=== PATIENT | male | born 1995 | race Caucasian/White ===

== ENCOUNTER 2024-02-21 18:16 | Observation (INO) ==
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
[2024-02-21 19:02] LABS: iSTAT Hemoglobin 12.9 g/dl (14.0-18.0); iSTAT Ionized Calcium 1.16 mmol/l (1.12-1.32); iSTAT Potassium 3.7 mmol/L (3.3-5.0)
[2024-02-21] MEDS: OPTIRAY 320 100ml IV ONE (19:13)
[2024-02-21 19:19] LABS: Basophils # (auto) 0.02 K/uL (0.00-0.20); Basophils % (auto) 0.2 %; Eosinophils # (auto) 0.03 K/uL (0.00-0.50); Eosinophils % (auto) 0.3 %; Hematocrit (blood only) 37.2 % (42.0-52.0); Hemoglobin 13.4 g/dl (14.0-18.0); Immature Granulocytes # (auto) 0.05 K/uL (0.01-0.20); Immature Granulocytes % (auto) 0.5 %; Lymphocytes # (auto) 0.94 K/uL (1.20-3.40); Lymphocytes % (auto) 8.8 %; Mean Corpuscular Hemoglobin 32.3 pg (25.0-34.0); Mean Corpuscular Volume 89.6 fL (80.0-100.0); Mean Platelet Volume 11.2 fL (9.4-12.4); Monocytes # (auto) 0.62 K/uL (0.11-0.59); Monocytes % (auto) 5.8 %; Neutrophils # (auto) 9.07 K/uL (1.40-6.50); Neutrophils % (auto) 84.4 %; Platelet Count 160 K/uL (130-400); RDW Coefficient of Variation 11.9 % (11.5-14.5); RDW Standard Deviation 38.4 fL (36.4-46.3); Red Blood Count 4.15 M/uL (4.70-6.10); White Blood Count 10.73 K/ul (4.8-10.8)
[2024-02-21] MEDS: AMPICILLIN/SULBACTAM SOD 3,000 MG/100 ML BAG IV STA (19:25)
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
[2024-02-21 19:38] LABS: Albumin Globulin Ratio 2.5 (0.9-2); Albumin Level 4.5 gm/dl (3.4-5.0); BUN Creatinine Ratio 8.6 (10-20); Bilirubin,Total 0.3 mg/dl (0.2-1.0); Creatinine Clr Calc Pharmacy 109.6 ml/min; Globulin 1.8 gm/dl (2.5-4.0); Potassium 3.7 mmol/L (3.5-5.1); Total Protein 6.3 gm/dl (6.0-8.3)
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
[2024-02-21] MEDS: ACETAMINOPHEN 1,000 MG/100 ML VIAL IV STA (19:46)
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
[2024-02-21] MEDS ORDERED: POTASSIUM CHLORIDE 20 MEQ in D5W AND 0.2% NaCL 1,000 ML IV ONE (20:20)
[2024-02-21] MEDS: MoRPHine SULFATE 4 MG/ML 1 ML CARP\\VIAL IV STA (20:30)
[2024-02-21] MEDS: D5NSS + 20MEQ KCL 20 MEQ/1,000 ML BAG IV ONE (20:39)
[2024-02-21 20:41] LABS: Magnesium 2.2 mg/dl (1.7-2.4)
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
[2024-02-21] MEDS ORDERED: IBUPROFEN 200 MG TAB PO PRN (22:08)
[2024-02-21] MEDS ORDERED: ONDANSETRON INJ 2 MG/ML 2 ML VIAL IV PRN (22:09)
[2024-02-21] MEDS: KETOROLAC TROMETHAMINE 15 MG/ML VIAL IV ONE (22:47)
[2024-02-22] MEDS: ACETAMINOPHEN 325 MG TAB PO PRN (00:04)
[2024-02-22] MEDS: LORazepam 0.5 MG TAB PO PRN (00:04)
[2024-02-22] MEDS: KETOROLAC TROMETHAMINE 15 MG/ML VIAL IV PRN (06:03)
[2024-02-22 06:45] LABS: Basophils # (auto) 0.03 K/uL (0.00-0.20); Basophils % (auto) 0.5 %; Eosinophils # (auto) 0.18 K/uL (0.00-0.50); Eosinophils % (auto) 2.9 %; Hematocrit (blood only) 36.7 % (42.0-52.0); Hemoglobin 12.3 g/dl (14.0-18.0); Immature Granulocytes # (auto) 0.01 K/uL (0.01-0.20); Immature Granulocytes % (auto) 0.2 %; Lymphocytes # (auto) 2.53 K/uL (1.20-3.40); Lymphocytes % (auto) 41.4 %; Mean Corpuscular Hemoglobin 31.2 pg (25.0-34.0); Mean Corpuscular Hgb Conc 33.5 g/dL (32.0-36.0); Mean Corpuscular Volume 93.1 fL (80.0-100.0); Mean Platelet Volume 11.2 fL (9.4-12.4); Monocytes # (auto) 0.57 K/uL (0.11-0.59); Monocytes % (auto) 9.3 %; Neutrophils # (auto) 2.79 K/uL (1.40-6.50); Neutrophils % (auto) 45.7 %; Platelet Count 146 K/uL (130-400); RDW Coefficient of Variation 12.2 % (11.5-14.5); RDW Standard Deviation 42.2 fL (36.4-46.3); Red Blood Count 3.94 M/uL (4.70-6.10); White Blood Count 6.11 K/ul (4.8-10.8)
[2024-02-22 07:00] LABS: BUN Creatinine Ratio 8.7 (10-20); Calcium 8.8 mg/dl (8.6-10.3); Creatinine Clr Calc Pharmacy 110.8 ml/min; Potassium 4.2 mmol/L (3.5-5.1)
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
[2024-02-22] MEDS ORDERED: AMOXICILLIN/CLAVULANATE 875 MG TAB PO SCH (08:00)
[2024-02-22] MEDS: BUPRENORPHINE/NALOXONE 8/2 MG TAB SL SCH (08:31)
[2024-02-22] MEDS: AMPICILLIN/SULBACTAM SOD 3,000 MG/100 ML BAG IV SCH ×2 (08:32→22:37)
[2024-02-22] MEDS ORDERED: IBUPROFEN 600 MG TAB PO PRN (10:07)
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
[2024-02-22] MEDS ORDERED: fentaNYL citrate PF 100 MCG/2 ML VIAL ONE (11:48)
[2024-02-22] MEDS ORDERED: LIDOCAINE 2% 2 ML VIAL/AMP(20MG/ML) INFIL ONE (11:48)
[2024-02-22] MEDS ORDERED: MIDAZOLAM HCL 1 MG/ML 2ML VIAL ONE (11:48)
[2024-02-22] MEDS ORDERED: GLYCOPYRROLATE 0.2 MG/ML VIAL ONE (11:48)
[2024-02-22] MEDS ORDERED: ONDANSETRON INJ 2 MG/ML 2 ML VIAL ONE (11:48)
[2024-02-22] MEDS ORDERED: DEXAMETHASONE SOD INJ 4 MG/ML VIAL ONE (11:48)
[2024-02-22] MEDS ORDERED: ROCURONIUM BROMIDE 10 MG/ML 5 ML VIAL IV ONE (11:48)
[2024-02-22] MEDS ORDERED: PROPOFOL IV EMULSION 10 MG/ML 20 ML VIAL IV ONE (11:48)
[2024-02-22] MEDS ORDERED: SUGAMMADEX SODIUM 200 MG/2 ML VIAL IV ONE (11:49)
[2024-02-22] MEDS ORDERED: DexMEDEtomidine HCL IV 100 MCG/ML VIAL IV ONE (11:59)
[2024-02-22] MEDS ORDERED: ATROPINE SULFATE 0.1 MG/ML 10ML SYR IV PRN (12:16)
[2024-02-22] MEDS ORDERED: ePHEDrine sulfate 50 MG/ML AMP IV PRN (12:16)
[2024-02-22] MEDS ORDERED: ONDANSETRON INJ 2 MG/ML 2 ML VIAL IV PRN (12:16)
--- NOTE | 2024-02-22 12:16 | Anesthesiology Consultation ---
Date of Service February 22, 2024 Assessment & Plan (1) Encounter for pre-operative examination: Chart Review Chart Review: Acceptable Risk for Surgery and Patient NOT seen in Pre Admission Testing Consults Requested none History Surgery Operation Date: 02/22/24 08:20 Proposed Procedures p Repair of Multiple Facial Lacerations - Dom Nicolas, DMD Height/Weight Height: 5 ft 7 in Weight: 69.8 kg Allergies Allergy/AdvReac Type Severity Reaction Status Date / Time No Known Allergies Allergy Verified 02/22/24 12:10 Medications Home Medications Medication Instructions Recorded Confirmed Last Taken adalimumab 40 mg/0.8 mL 40 mg subcut UD 02/21/24 02/21/24 02/17/24 subcutaneous syringe kit (Humira) buprenorphine 8 mg-naloxone 2 mg 2 tab sublingual DAILY 02/21/24 02/21/24 02/21/24 11:00 sublingual tablet Active Medications Generic Name Dose Route Start Last Admin Trade Name Freq PRN Reason Stop Dose Admin Buprenorphine/Naloxone 2 tab 02/22/24 09:00 02/22/24 08:31 Buprenorphine/Naloxone 8/2 Mg Tab SL 03/23/24 08:59 2 tab DAILY SHEKHAR Administration Ampicillin Sodium/Sulbactam Sodium 3,000 mg in 100 mls @ 200 mls/hr 02/22/24 08:00 02/22/24 09:41 Unasyn IV 02/29/24 07:59 Infused Q6H SHEKHAR Infusion Ketorolac Tromethamine 15 mg 02/21/24 22:08 02/22/24 06:03 Ketorolac Tromethamine 15 Mg/Ml Vial IV 02/26/24 22:07 15 mg Q6H PRN Administration Pain NPO Date Last Intake of Fluids: 02/21/24 Time Last Intake of Fluids: 23:00 Date Last Intake of Solids: 02/21/24 Time Last Intake of Solids: 23:00 Social History Smoking Status: Current every day smoker Smoking cigarettes per day: 1 e-cigarette per day Do You Dip or Chew Tobacco: No Hx Alcohol Use: No Hx Substance Use: No substance use type: other Substance Use Type Other:: has medical marijuana card, Last Used Substance Other:: last used 2019 Physical Exam Vital Signs Last Vital Signs Temp 98.1 F 02/22/24 12:10 Pulse 55 L 02/22/24 12:10 Resp 16 02/22/24 12:10 BP 129/64 02/22/24 12:10 Pulse Ox 99 02/22/24 12:10 O2 Del Method Room Air 02/22/24 12:10 Testing Laboratory Results 02/22/24 06:06 02/22/24 06:06 Blood Type A Positive 02/22/24 06:06 Antibody Screen NEGATIVE 02/22/24 06:06
--- NOTE | 2024-02-22 12:33 | History & Physical Bridge Note ---
Date of Service February 22, 2024 History & Physical Bridge Note I have examined the patient, reviewed the History & Physical and in the interval since the performance of the History & Physical I have noted the following changes of clinical significance: no changes noted
[2024-02-22] MEDS: STERILE IRRIGATING OPTH SOLUTION (BSS) 15ML ONE (13:58)
[2024-02-22] MEDS: CHLORHEXIDINE GLUCONATE 0.12% 480 ML MT ONE (13:59)
[2024-02-22] MEDS: BUPIVACAINE/EPINEPHRINE 0.5% 1:200,000 1.8 ML CARP ONE (14:00)
--- NOTE | 2024-02-22 14:23 | Post Operative Brief Note ---
PG Immediate Post Op with CF Date of Surgery February 22, 2024 Pre & Post Diagnosis Operation Date: 02/22/24 08:20 Pre-Op Diagnosis: Right Ear, Eyebrow, and Left Lip Lacerations Post-Op Diagnosis: Right Ear, Eyebrow, and Left Lip Lacerations I identified the patient and participated in the time-out.: Yes Procedure Operation Date: 02/22/24 08:20 Actual Procedures p Repair of Multiple Facial Lacerations(Bilateral) - Dom Nicolas DMD Surgeon Dom Nicolas DMD Supervisor Product Inspection none Estimated Blood Loss 5 Findings Consistent with Post-Op Diagnosis multiply facial laceration Specimens Specimen Description: none per sugeon Anesthesia Type General Complications none Disposition Accompanied Patient To Recovery: Yes
[2024-02-22] MEDS: fentaNYL citrate PF 100 MCG/2 ML VIAL IV PRN (14:40)
--- NOTE | 2024-02-22 15:01 | Anesthesiology Progress Note ---
Date of Service February 22, 2024 Anesthesia Post Procedure Vital Signs Vital Signs: Temp Pulse Pulse Pulse Resp BP BP 02/22/24 14:50 67 12 113/58 L 02/22/24 14:40 81 12 115/65 02/22/24 14:30 82 12 114/64 02/22/24 14:20 63 12 113/55 L 02/22/24 14:11 96.8 F L 65 8 L 101/55 L 02/22/24 12:10 98.1 F 55 L 16 02/22/24 07:21 98.2 F 65 18 02/21/24 23:59 02/21/24 23:50 98.1 F 69 19 02/21/24 23:34 98.1 F 69 19 02/21/24 22:00 72 20 02/21/24 20:41 78 20 02/21/24 20:38 83 02/21/24 20:02 99.1 F 02/21/24 18:21 104 H 19 126/83 BP Pulse Ox O2 Del Method O2 Flow Rate 02/22/24 14:50 98 Room Air 02/22/24 14:40 100 Room Air 02/22/24 14:30 97 Oxymask 4 02/22/24 14:20 100 Oxymask 9 02/22/24 14:11 100 Oxymask 9 02/22/24 12:10 129/64 99 Room Air 02/22/24 07:21 115/69 98 Room Air 02/21/24 23:59 Room Air 02/21/24 23:50 137/87 98 Room Air 02/21/24 23:34 137/87 98 Room Air 02/21/24 22:00 112/80 97 Room Air 02/21/24 20:41 112/80 97 Room Air 02/21/24 20:38 97 Room Air 02/21/24 20:02 02/21/24 18:21 94 Room Air Pain Intensity Face: Pain Intensity: 6 Transfer of Care Handoff Completed per policy Notes Mental Status: alert / awake / arousable and participated in evaluation Patient Amnestic to Procedure: Yes Nausea / Vomiting: adequately controlled Pain: adequately controlled Airway Patency, RR, SpO2: stable & adequate BP & HR: stable & adequate Hydration State: stable & adequate Anesthetic Complications: no major complications apparent and Pt Satisfied with anesthetic care
--- NOTE | 2024-02-22 15:08 | Anesthesiology Progress Note ---
Date of Service February 22, 2024 Anesthesia Post Procedure Vital Signs Vital Signs: Temp Pulse Pulse Pulse Resp BP BP 02/22/24 15:00 72 15 119/59 L 02/22/24 14:50 67 12 113/58 L 02/22/24 14:40 81 12 115/65 02/22/24 14:30 82 12 114/64 02/22/24 14:20 63 12 113/55 L 02/22/24 14:11 36.0 C L 65 8 L 101/55 L 02/22/24 12:10 36.7 C 55 L 16 02/22/24 07:21 36.8 C 65 18 02/21/24 23:59 02/21/24 23:50 36.7 C 69 19 02/21/24 23:34 36.7 C 69 19 02/21/24 22:00 72 20 02/21/24 20:41 78 20 02/21/24 20:38 83 02/21/24 20:02 37.3 C 02/21/24 18:21 104 H 19 126/83 BP Pulse Ox O2 Del Method O2 Flow Rate 02/22/24 15:00 97 Room Air 02/22/24 14:50 98 Room Air 02/22/24 14:40 100 Room Air 02/22/24 14:30 97 Oxymask 4 02/22/24 14:20 100 Oxymask 9 02/22/24 14:11 100 Oxymask 9 02/22/24 12:10 129/64 99 Room Air 02/22/24 07:21 115/69 98 Room Air 02/21/24 23:59 Room Air 02/21/24 23:50 137/87 98 Room Air 02/21/24 23:34 137/87 98 Room Air 02/21/24 22:00 112/80 97 Room Air 02/21/24 20:41 112/80 97 Room Air 02/21/24 20:38 97 Room Air 02/21/24 20:02 02/21/24 18:21 94 Room Air Pain Intensity Face: Pain Intensity: 6 Transfer of Care Handoff Completed per policy Notes Mental Status: alert / awake / arousable and participated in evaluation Nausea / Vomiting: adequately controlled Pain: adequately controlled Airway Patency, RR, SpO2: stable & adequate BP & HR: stable & adequate Hydration State: stable & adequate Anesthetic Complications: no major complications apparent and Pt Satisfied with anesthetic care
[2024-02-22] MEDS: ACETAMINOPHEN 325 MG TAB PO SCH (17:03)
[2024-02-22] MEDS: PANTOprazole 40 MG TAB PO SCH (17:03)
[2024-02-22] MEDS: TRIAMCINOLONE ACET 0.1% OINT 15 GM TUBE ONE (17:05)
[2024-02-22] MEDS ORDERED: Nursing to Pharmacy Communication SCH (17:15)
[2024-02-22 19:27] VITALS: RESP 16
[2024-02-22] MEDS: hydrOXYzine HCl 10 MG TAB PO PRN (22:37)
[2024-02-22] MEDS: MELATONIN 3 MG TAB PO PRN (22:37)
[2024-02-23 06:44] LABS: Hematocrit (blood only) 35.1 % (42.0-52.0); Hemoglobin 12.4 g/dl (14.0-18.0); Mean Corpuscular Hemoglobin 32.2 pg (25.0-34.0); Mean Corpuscular Hgb Conc 35.3 g/dL (32.0-36.0); Mean Corpuscular Volume 91.2 fL (80.0-100.0); Mean Platelet Volume 11.6 fL (9.4-12.4); Platelet Count 144 K/uL (130-400); RDW Coefficient of Variation 12.2 % (11.5-14.5); RDW Standard Deviation 40.9 fL (36.4-46.3); Red Blood Count 3.85 M/uL (4.70-6.10); White Blood Count 7.18 K/ul (4.8-10.8)
[2024-02-23 07:09] LABS: BUN Creatinine Ratio 10.5 (10-20); Calcium 9.3 mg/dl (8.6-10.3); Creatinine Clr Calc Pharmacy 118.5 ml/min; Magnesium 1.9 mg/dl (1.7-2.4); Potassium 4.1 mmol/L (3.5-5.1)
--- NOTE | 2024-02-23 09:08 | Operative Report ---
PG Post Operative Report Pre & Post Diagnosis Operation Date: 02/22/24 08:20 Pre-Op Diagnosis: Right Ear, Eyebrow, and Left Lip Lacerations Post-Op Diagnosis: Right Ear, Eyebrow, and Left Lip Lacerations I identified the patient and participated in the time-out.: Yes Procedure Operation Date: 02/22/24 08:20 Actual Procedures p Repair of Multiple Facial Lacerations(Bilateral) - Dom Nicolas, VLAD Surgeon Dom Nicolas, VLAD Chocolate Refining Roller none Estimated Blood Loss 5 Findings Consistent with Post-Op Diagnosis Specimens none Drains none Anesthesia Type General Complications none Disposition Accompanied Patient To Recovery: Yes Indications Repair of facial lacerations Description of Procedure ADMITTING DIAGNOSES: Facial Laceration OPERATION: Complex repair 7.5 cm lacerations involving the upper lip, ear and eyebrow. CPT 78042 up to 2.5 cm CPT 72011 addition from 2.5-7.5 cm Repair of a complex 3 cm laceration involving the upper left slick boarder and though-through to mucosa of the left vestibule Repair of a complex 2 cm though-through laceration of the right earlobe Repair of an 2.5 cm irregular complex laceration associated with the right eyebrow in a v-shaped fashion OPERATION IN DETAIL: The patient was cleared to undergo general anesthesia. Then brought down to the operating room placed under general anesthesia via a oral tracheal intubation. After an adequate level of anesthesia was obtained, an appropriate time-out was taken to ensure that we had Gilmar Martínez in our operating room with the proper equipment. After everyone agreed, the operation began. At this time,the patient was deeply anesthetized and the tubes were secured. The patient was prepped and draped in the usual manner for the laceration repair. local anesthesia in the form of Marcaine with a vasoconstrictor, approximately 3 carpules of the local anesthesia were injected into the area to allow for local anesthetic effect. I reprepped and re gloved, and turned my attention to the laceration. The upper lip laceration was approximately 3 cm long. It was very irregular. It was a [id number] laceration through the muscle. I used an electrocautery instrument and cauterized any bleeders. The wound was irrigated and scrubbed. I then inspected the wound.It was a complex 3 cm laceration involving the skin above the upper left slick boarder and though-through to mucosa of the left vestibule extending back to the mid portion of the maxilla deep to the muscles. The closure of the laceration was now started using 4-0 Vicryl suture to line up the deep muscles and submucosal tissues , the tissues were sutured with a 5-0 Vicryl and then fi lauren the skin was closed with a of 6-0 nylon suture. A very nice cosmetic closure of this irregular laceration was achieved.I I now turned my attention to the Repair of a complex 2 cm though-through laceration of the right earlobe. The posterior of the earlobe was closed with a 4-0 Vicryl suture. The subcutaneous tissue was closed with a few 6-0 Vicryl deep sutures and finally the skin on the frontal surface was closed with a 6-0 nylon. I now repaired the V-shaped eyebrow laceration. A 5-0 Vicryl was used to line up the subQ tissues to allow good positioning of the eyebrow. Now a 6-0 nylon was used to line up the skin/hair line of the eyebrow to achieve symmetry with the hair-skin line. Once this suture was placed I was able to line up the V-shaped laceration both above and in the eyebrow area to achieve a nice anatomic closure of this irregular laceration. At this time, benzoin was applied around the periphery of the 3 repairs and Steri-Strips were applied. Fabian: Complex repair 7.5 cm lacerations involving the upper lip, ear and eye The patient was allowed to recover in the usual manner and then once he was fully recovered and moved to the recovery room, The patient tolerated the procedure very well. I anticipate an uneventful postoperative course. We will coordinate with Lindsey regarding suture removal either in their nursing clinic of [facility] return to my office for follow up. I attest to the content of the Intraoperative Record and any orders documented therein. Any exceptions are noted below.
[2024-02-23 11:05] VITALS: BP 126/65; PULSE 64; TEMP 98.4; O2SAT 100
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
== END 2024-02-23 15:27 | DRG 137 ==
LOC: ED 18:16 → SUATTDRO 22:07 → INTOOBSV 22:07 → 3E 22:07